=== PATIENT | male | born 1995 | race Caucasian/White ===

== ENCOUNTER 2020-03-24 08:47 | Inpatient (IN) | payer OTHER ==
--- NOTE | 2020-03-24 09:38 | BHS.RME ---
Substance Use & Tx History - Substance Use History Alcohol Substance amount: 1 liter rum Frequency of use: Daily Substance route: Oral Date of Last Use: 03/23/20 Marijuana/Hashish Substance amount: 2 grams Frequency of use: Less than 3 times per week Substance route: Smoking Date of Last Use: 03/20/20 Nicotine Substance amount: 1n pack Frequency of use: Less than 3 times per week Substance route: Smoking Date of Last Use: 03/17/20 Physical/Psych/Mental Status - Behavior General Behavior: Increased activity (restlessness, agitation) Eye Contact: Normal - Cooperativeness Cooperativeness: Cooperative - Thinking Thought Processes: Tight, Logical, Goal Directed Thought content: Future oriented - Physical Health Problems Is patient presently having any pain?: No Does patient presently have any injuries (include location): No Does patient currently have a fever: No Is patient : No CIWA Nausea/Vomitin Muscle Tremors: 4-Moderate,w/Arms Extend Anxiety: 6 Agitation: 4-Moderately Restless Paroxysmal Sweats: 1-Minimal Palms Moist Orientation: 1-Uncertain about Date Tacttile Disturbances: 0-None Auditory Disturbances: 0-None Visual Disturbances: 0-None Headache: 0-None Present CIWA-Ar Total Score: 18
--- NOTE | 2020-03-24 10:25 | HP ---
CIWA Score Nausea/Vomitin Muscle Tremors: 4-Moderate,w/Arms Extend Anxiety: 6 Agitation: 4-Moderately Restless Paroxysmal Sweats: 1-Minimal Palms Moist Orientation: 1-Uncertain about Date Tacttile Disturbances: 0-None Auditory Disturbances: 0-None Visual Disturbances: 0-None Headache: 0-None Present CIWA-Ar Total Score: 18 - Admission Criteria OASAS Guidelines: Admission for Medically Managed Detox: Requires at least one of the followin. CIWA greater than 12 2. Seizures within the past 24 hours 3. Delirium tremens within the past 24 hours 4. Hallucinations within the past 24 hours 5. Acute intervention needed for co occurring medical disorder 6. Acute intervention needed for co occurring psychiatric disorder 7. Severe withdrawal that cannot be handled at a lower level of care (continued vomiting, continued diarrhea, abnormal vital signs) requiring intravenous medication and/or fluids 8. Admitting History and Physical - Admission Chief Complaint: " I feel sick and mentally unstable and dont want to lose my job." History of Present Illness: 24 year old male with history of alcohol dependence with withdrawal. He was her e 2 days ago and did not stay because he wasn't reacy. Alcohol: 1 liter rum daily, started drinking at the age of 12 and last drank 03/23/20, blackouts multiple times, last one 1 month ago, endorses the need for an eye manager education daily Marijuana: 2 grams on the weekends, started at age 14 and last used 03/20/20 Nicotine: 1 pack weekly, started at age 14 and last smoked 03/17/20 PMH: HTN, GERD Psurg: None Psych: Bipolar ( Seroquel, benadryl) last taken meds 1 month ago Lives in [place] with family No legal problems. He is at high risk for relapse, employed as an RN for 2 years.CIWA=18 HUDSON: 0.000 History Source: Patient Limitations to Obtaining History: No Limitations - Past Medical History Cardiovascular: Yes: HTN Gastrointestinal: Yes: GERD Psych: Yes: Bipolar - Past Surgical History Past Surgical History: Yes: None - Smoking History Smoking history: Former smoker Have you smoked in the past 12 months: No - Alcohol/Substance Use Hx Alcohol Use: Yes History of Substance Use: reports: Marijuana - Social History Usual Living Arrangement: Yes: With Parent Do you think of yourself as: Straight/Heterosexual ADL: Independent Occupation: RN History of Recent Travel: No Admission ROS BHS - HPI Exam Limitations: No Limitations - Ebola screening Have you traveled outside of the country in the last 21 days: No Have you had contact with anyone from an Ebola affected area: No Have you been sick,other than usual withdrawal symptoms: No Do you have a fever: No - Review of Systems Constitutional: Chills, Diaphoresis EENT: reports: No Symptoms Reported Respiratory: reports: No Symptoms reported Cardiac: reports: No Symptoms Reported GI: reports: No Symptoms Reported : reports: No Symptoms Reported Musculoskeletal: reports: No Symptoms Reported Integumentary: reports: No Symptoms Reported Neuro: reports: No Symptoms reported Endocrine: reports: No Symptoms Reported Hematology: reports: No Symptoms Reported Psychiatric: reports: Judgement Intact, Mood/Affect Appropiate, Orientated x3, Agitated, Anxious Other Systems: Reviewed and Negative Patient History - Patient Medical History Hx Anemia: No Hx Asthma: No Hx Chronic Obstructive Pulmonary Disease (COPD): No Hx Cancer: No Hx Cardiac Disorders: No Hx Congestive Heart Failure: No Hx Hypertension: Yes Hx Hypercholesterolemia: No Hx Pacemaker: No HX Cerebrovascular Accident: No Hx Seizures: No Hx Dementia: No Hx Diabetes: No Hx Gastrointestinal Disorders: Yes (GERD) Hx Liver Disease: No Hx Genitourinary Disorders: No Hx Sexually Transmitted Disorders: No Hx Renal Disease (ESRD): No Hx Thyroid Disease: No Hx Human Immunodeficiency Virus (HIV): No Hx Hepatitis C: No Hx Depression: No Hx Suicide Attempt: No Hx Bipolar Disorder: Yes Hx Schizophrenia: No - Patient Surgical History Past Surgical History: No - PPD History Previous Implant?: Yes Documented Results: Negative w/o proof Implanted On Prior [facility] Admission?: No Date: 10/30/19 Results: negative PPD to be Administered?: Yes - Smoking Cessation Smoking history: Former smoker Have you smoked in the past 12 months: No Hx Chewing Tobacco Use: No Initiated information on smoking cessation: No - Substances abused Alcohol Substance route: Oral Frequency: Daily Amount used: 1 liter rum Age of first use: 12 Date of last use: 03/23/20 (10pm) Marijuana/Hashish Substance route: Smoking Frequency: Daily Amount used: 2 grams Age of first use: 14 Date of last use: 03/20/20 Admission Physical Exam S - Physical General Appearance: Yes: Moderate Distress, Thin, Tremorous, Irritable, Sweating, Anxious HEENTM: Yes: EOMI, Hearing grossly Normal, Normal ENT Inspection, Normocephalic, Normal Voice, DIMAS, Pharynx Normal, Tm's normal Respiratory: Yes: Chest Non-Tender, Lungs Clear, Normal Breath Sounds, No Respiratory Distress, No Accessory Muscle Use Neck: Yes: No masses,lesions,Nodules, Supple, Trachea in good position Breast: Yes: Within Normal Limits Cardiology: Yes: Regular Rhythm, Regular Rate, S1, S2 Abdominal: Yes: Normal Bowel Sounds, Non Tender, Flat, Soft, Protuberent Genitourinary: Yes: Within Normal Limits Back: Yes: Normal Inspection Musculoskeletal: Yes: full range of Motion, Gait Steady, Pelvis Stable Extremities: Yes: Normal Capillary Refill, Normal Inspection, Normal Range of Motion, Non-Tender Neurological: Yes: canoe inspector final II-XII NML intact, Fully Oriented, Alert, Motor Strength 5/5, Normal Mood/Affect, Normal Response Integumentary: Yes: Normal Color, Dry, Warm Lymphatic: Yes: Within Normal Limits - Diagnostic (1) Alcohol dependence with withdrawal Current Visit: Yes Status: Acute (2) Hypertension Current Visit: Yes Status: Acute (3) GERD (gastroesophageal reflux disease) Current Visit: Yes Status: Acute (4) Cannabis use disorder, mild, abuse Current Visit: Yes Status: Acute Cleared for Admission [facility] - Detox or Rehab [facility] Level of Care: Medically Managed Detox Regimen/Protocol: Librium Claeared for Rehab Admission: No Screened but not Admitted - Documentation of Visit Screened but not Admitted: No Breathalyzer - Breathalyzer Breathalyzer: 0 Urine Drug Screen - Test Device Lot number: [id number] Expiration date: 05/10/21 - Control Is test valid?: Yes - Results Drug screen NEGATIVE: No Urine drug screen results: THC-Marijuana Inpatient Rehab Admission - Rehab Decision to Admit Inpatient rehab admission?: No
[2020-03-24] MEDS ORDERED: MAG HYDROX/AL HYDROX/SIMETH 30 ML UNIT-DOSE CUP PO PRN (10:32)
[2020-03-24] MEDS ORDERED: chlordiazePOXIDE HCL 25 MG CAPSULE PO PRN (10:32)
[2020-03-24] MEDS ORDERED: ACETAMINOPHEN 325 MG TABLET (FP) PO PRN ×2 (10:32)
[2020-03-24] MEDS ORDERED: NICOTINE POLACRILEX 2 MG GUM BUC PRN (10:32)
[2020-03-24] MEDS ORDERED: MAGNESIUM CITRATE 300 ML BOTTLE PO PRN (10:32)
[2020-03-24] MEDS ORDERED: ONDANSETRON *ODT* 4 MG TABLET SL ONE (10:32)
[2020-03-24] MEDS ORDERED: IBUPROFEN 400 MG TABLET (FP) PO PRN (10:32)
[2020-03-24] MEDS ORDERED: BISMUTH SUBSALICYLATE 262 MG/15 ML BTL PO PRN (10:32)
[2020-03-24] MEDS ORDERED: MAGNESIUM HYDROX 2400MG/30ML ORAL SUSPENSION 30 ML CUP PO PRN (10:32)
[2020-03-24] MEDS ORDERED: MENTHOL/PHENOL 1 EACH UD MM PRN (10:32)
[2020-03-24] MEDS ORDERED: METHOCARBAMOL 500 MG TABLET PO PRN (10:32)
[2020-03-24 10:48] VITALS: BMI 32.3
--- NOTE | 2020-03-24 10:48 | EKG ---
Test Reason : Blood Pressure : / mmHG Vent. Rate : 085 BPM Atrial Rate : 085 BPM P-R Int : 150 ms QRS Dur : 096 ms QT Int : 360 ms P-R-T Axes : 038 026 029 degrees QTc Int : 428 ms NORMAL SINUS RHYTHM NORMAL ECG NO PREVIOUS ECGS AVAILABLE Confirmed by MD CANDIDO, TERENCE ([id number]) on 03/24/2020 10:48:15 AM Referred By: Confirmed By:TERENCE REY MD
[2020-03-24] MEDS: chlordiazePOXIDE HCL 25 MG CAPSULE PO SCH ×3 (12:14→22:25)
[2020-03-24] MEDS: NICOTINE 7 MG/24 HOURS TOPICAL PATCH TD SCH (12:15)
[2020-03-24] MEDS: PRENATAL VITAMINS W/ FOLIC ACID TABLET (FP) PO SCH (12:16)
[2020-03-24] MEDS: hydrOXYzine PAMOATE 25 MG CAPSULE (FP) PO SCH ×3 (13:35→22:25)
--- NOTE | 2020-03-24 14:02 | CONSULT ---
[facility] Psychiatric Consult - Data Date of interview: 03/24/20 Admission source: [facility] Identifying data: Mr Duong is a 24 years old single [place] male, employed as a dialysis nurse, living with his parents seeking detox treatment for alcohol and cannabis Substance Abuse History: Reports history of alcohol and marijuana use. Refer to addiction counselor's summary for further information Medical History: Significant for hypertension and GERD. Smokes few cigarettes daily Psychiatric History: This is patient's first admission to this facility. He reports that his first psychiatric contact occured in 2018 when he was diagnosed with Bipolar Disorder by a psychiatrist at [facility] in [facility] and started on Lexapro. Reports receiving outpatient psychiatric at same facility till November 2019. However he was switched to Seroquel which he stopped taking in December 2019. Denies previous psychiatric hospitalization or suicidal attempt. At present, denies experiencing psychotic, manic or depressive symptoms, S/H ideations. However, reports sleeping poorly Physical/Sexual Abuse/Trauma History: Denies history of abuse as a child or DV relationship as an adult Mental Status Exam - Mental Status Exam Alert and Oriented to: Time, Place, Person Cognitive Function: Fair Patient Appearance: Well Groomed Mood: Hopeful, Euthymic Patient Behavior: Cooperative Speech Pattern: Clear Voice Loudness: Normal Thought Process: Intact, Goal Oriented Hallucinations: Denies Suicidal Ideation: Denies Homicidal Ideation: Denies Insight/Judgement: Poor Sleep: Poorly Appetite: Fair Muscle strength/Tone: Normal Gait/Station: Normal Psychiatric Findings - Problem List ([place] 1, 2,3) (1) Bipolar II disorder Current Visit: Yes Status: Chronic (2) Substance-induced sleep disorder Current Visit: Yes Status: Acute (3) Alcohol dependence with withdrawal Current Visit: Yes Status: Acute (4) Cannabis use disorder, mild, abuse Current Visit: Yes Status: Acute (5) Nicotine dependence Current Visit: Yes Status: Chronic (6) GERD (gastroesophageal reflux disease) Current Visit: Yes Status: Chronic (7) Hypertension Current Visit: Yes Status: Chronic - Initial Treatment Plan Initial Treatment Plan: 1) Start Melatonin 5 mg po HS prn for insomnia. 2) Continue inpatient detoxification
[2020-03-24] MEDS ORDERED: TUBERCULIN PPD 5 TU/0.1ML VIAL ID ONE (14:29)
[2020-03-24 16:26] LABS: HEMATOCRIT 47.6 % (35.4-49); HEMOGLOBIN 16.6 GM/dL (11.7-16.9); MCH 33.6 pg (25.7-33.7); MCHC 34.9 g/dl (32.0-35.9); MEAN CELL VOLUME 96.3 fl (80-96); MEAN PLT VOLUME 7.7 fl (7.5-11.1); PLATELET COUNT 310 K/MM3 (134-434); RBC 4.94 M/mm3 (4.00-5.60); RDW 12.9 % (11.9-15.9)
[2020-03-24 16:34] LABS: ALBUMIN 4.4 g/dl (3.4-5.0); BILIRUBIN,TOTAL 2.3 mg/dL (0.2-1); BLOOD UREA NITROGEN 10.1 mg/dL (7-18); CALCIUM 9.4 mg/dL (8.5-10.1); CREATININE 0.9 mg/dL (0.55-1.3); POTASSIUM 3.7 mmol/L (3.5-5.1); TOT PROT 8.2 g/dl (6.4-8.2)
[2020-03-24] MEDS: MELATONIN 5 MG TABLETS PO SCH (22:25)
[2020-03-24] MEDS: THIAMINE HCL 100 MG TABLET (FP) PO SCH (22:25)
[2020-03-25] MEDS: chlordiazePOXIDE HCL 25 MG CAPSULE PO SCH ×4 (06:18→22:12)
[2020-03-25] MEDS: hydrOXYzine PAMOATE 25 MG CAPSULE (FP) PO SCH ×5 (06:19→22:11)
[2020-03-25] MEDS: NICOTINE 7 MG/24 HOURS TOPICAL PATCH TD SCH (10:15)
[2020-03-25] MEDS: PANTOPRAZOLE 40 MG TABLET PO SCH (10:15)
[2020-03-25] MEDS: PRENATAL VITAMINS W/ FOLIC ACID TABLET (FP) PO SCH (10:15)
--- NOTE | 2020-03-25 11:59 | PN ---
S CIWA - CIWA Score Nausea/Vomitin-No Nausea/No Vomiting Muscle Tremors: 4-Moderate,w/Arms Extend Anxiety: 4-Mod. Anxious/Guarded Agitation: 3 Paroxysmal Sweats: 1-Minimal Palms Moist Orientation: 0-Oriented Tacttile Disturbances: 0-None Auditory Disturbances: 0-None Visual Disturbances: 0-None Headache: 0-None Present CIWA-Ar Total Score: 12 BHS Progress Note (SOAP) Subjective: Pt is a 24 y/o male admitted to detox [address] [place] [address] from [facility] with alcohol withdrawal sx. Pt c/o Slight Anxiety Tremors chills Objective: 03/25/20 11:55 Vital Signs - 24 hr 03/24/20 03/24/20 03/24/20 12:11 12:46 16:38 Temperature 97.8 F 97.8 F 98.2 F Pulse Rate 99 H 95 H 95 H Respiratory 18 18 18 Rate Blood Pressure 141/108 H 153/92 144/96 O2 Sat by Pulse 97 97 Oximetry (%) Laboratory Tests 03/24/20 03/24/20 03/24/20 11:00 11:00 11:00 WBC 5.0 RBC 4.94 Hgb 16.6 Hct 47.6 MCV 96.3 H MCH 33.6 MCHC 34.9 RDW 12.9 Plt Count 310 MPV 7.7 Sodium 136 Potassium 3.7 Chloride 100 Carbon Dioxide 26 Anion Gap 10 BUN 10.1 Creatinine 0.9 Est GFR (CKD-EPI)AfAm 136.14 Est GFR (CKD-EPI)NonAf 117.46 Random Glucose 101 Calcium 9.4 Total Bilirubin 2.3 H AST 246 H ALT 121 H Alkaline Phosphatase 93 Total Protein 8.2 Albumin 4.4 Syphilis Serology Non-reactive COVID-19 (ABIEL) 03/24/20 11:30 WBC RBC Hgb Hct MCV MCH MCHC RDW Plt Count MPV Sodium Potassium Chloride Carbon Dioxide Anion Gap BUN Creatinine Est GFR (CKD-EPI)AfAm Est GFR (CKD-EPI)NonAf Random Glucose Calcium Total Bilirubin AST ALT Alkaline Phosphatase Total Protein Albumin Syphilis Serology COVID-19 (ABIEL) Not detected Elevated liver enzymes Assessment: 03/25/20 11:57 withdrawal sx Plan: cont detox increase po fluids maintain safety
[2020-03-25] MEDS: THIAMINE HCL 100 MG TABLET (FP) PO SCH (22:11)
[2020-03-25] MEDS: MELATONIN 5 MG TABLETS PO SCH (22:11)
[2020-03-26] MEDS: chlordiazePOXIDE HCL 25 MG CAPSULE PO SCH ×2 (05:50→11:03)
[2020-03-26] MEDS: hydrOXYzine PAMOATE 25 MG CAPSULE (FP) PO SCH ×6 (05:50→22:47)
[2020-03-26 09:52] LABS: INR 0.91 (0.83-1.09); PROTHROMBIN TIME (PATIENT) 10.7 SEC (9.7-13.0)
[2020-03-26] MEDS: PANTOPRAZOLE 40 MG TABLET PO SCH (11:02)
[2020-03-26] MEDS: NICOTINE 7 MG/24 HOURS TOPICAL PATCH TD SCH (11:02)
[2020-03-26] MEDS: PRENATAL VITAMINS W/ FOLIC ACID TABLET (FP) PO SCH (11:02)
--- NOTE | 2020-03-26 11:53 | PN ---
S CIWA - CIWA Score Nausea/Vomitin-No Nausea/No Vomiting Muscle Tremors: None Anxiety: 4-Mod. Anxious/Guarded ("want to go back to work") Agitation: 0-Normal Activity Paroxysmal Sweats: No Perspiration Orientation: 0-Oriented Tacttile Disturbances: 0-None Auditory Disturbances: 0-None Visual Disturbances: 0-None Headache: 0-None Present CIWA-Ar Total Score: 4 BHS Progress Note (SOAP) Subjective: Pt reports detox proceeding well , slight Anxiety. States would like to go back to work and feeling better. "States i just had a little too much to drink so my parents encouraged me to come. Objective: 03/26/20 12:31 Vital Signs - 24 hr 03/25/20 03/25/20 03/26/20 16:42 20:45 05:45 Temperature 97.8 F 97.3 F L 97.3 F L Pulse Rate 90 84 61 Respiratory 18 19 19 Rate Blood Pressure 126/99 131/83 110/64 O2 Sat by Pulse 98 98 Oximetry (%) 03/26/20 09:21 Temperature 97.7 F Pulse Rate 88 Respiratory 18 Rate Blood Pressure 141/95 O2 Sat by Pulse 98 Oximetry (%) Laboratory Tests 03/24/20 03/24/20 03/24/20 11:00 11:00 11:00 WBC 5.0 RBC 4.94 Hgb 16.6 Hct 47.6 MCV 96.3 H MCH 33.6 MCHC 34.9 RDW 12.9 Plt Count 310 MPV 7.7 PT with INR INR Sodium 136 Potassium 3.7 Chloride 100 Carbon Dioxide 26 Anion Gap 10 BUN 10.1 Creatinine 0.9 Est GFR (CKD-EPI)AfAm 136.14 Est GFR (CKD-EPI)NonAf 117.46 Random Glucose 101 Calcium 9.4 Total Bilirubin 2.3 H AST 246 H ALT 121 H Alkaline Phosphatase 93 Total Protein 8.2 Albumin 4.4 Syphilis Serology Non-reactive COVID-19 (ABIEL) 03/24/20 03/26/20 11:30 07:20 WBC RBC Hgb Hct MCV MCH MCHC RDW Plt Count MPV PT with INR 10.70 INR 0.91 Sodium Potassium Chloride Carbon Dioxide Anion Gap BUN Creatinine Est GFR (CKD-EPI)AfAm Est GFR (CKD-EPI)NonAf Random Glucose Calcium Total Bilirubin AST ALT Alkaline Phosphatase Total Protein Albumin Syphilis Serology COVID-19 (ABIEL) Not detected Alert o x 3 nad oob ambulating with steady gait Assessment: 03/26/20 12:31 mild withdrawal sx medically stable Plan: cont detox increase po fluids maintain safety Pt may be discharged in the morning 03/27/20 if medically stable. Pt has PCP at [facility]-Dr Cooper. Pt to follow up with PCP for medical management and repeat blood work for elevated liver enzymes.
[2020-03-26 15:11] LABS: ALK PHOS 115 U/L (45-117); SGOT/AST 139 U/L (15-37); SGPT/ALT 98 U/L (13-61)
[2020-03-26] MEDS ORDERED: chlordiazePOXIDE HCL 10 MG CAPSULE PO ONE ×3 (17:07→23:00)
[2020-03-26] MEDS: chlordiazePOXIDE HCL 10 MG CAPSULE PO SCH ×2 (17:22→17:23)
[2020-03-26] MEDS: MELATONIN 5 MG TABLETS PO SCH (22:47)
[2020-03-26] MEDS: THIAMINE HCL 100 MG TABLET (FP) PO SCH (22:47)
[2020-03-27] MEDS ORDERED: chlordiazePOXIDE HCL 10 MG CAPSULE PO PRN
[2020-03-27] MEDS ORDERED: chlordiazePOXIDE HCL 10 MG CAPSULE PO SCH (05:00)
[2020-03-27] MEDS ORDERED: chlordiazePOXIDE HCL 10 MG CAPSULE PO ONE (05:00)
[2020-03-27] MEDS: hydrOXYzine PAMOATE 25 MG CAPSULE (FP) PO SCH (06:22)
[2020-03-27 10:13] VITALS: BP 145/96; PULSE 72; TEMP 97.3
--- NOTE | 2020-03-27 10:57 | DS ---
[facility] Detox Discharge Summary Admission Date: 03/24/20 Discharge Date: 03/27/20 - History Present History: Alcohol Dependence Additional Comments: Alert and oriented x 3, in no acute respiratory distress. Full ROM, ambulating in the unit without assistance. Completed detox protocol, medical stable for discharge today. Pertinent Past History: History of HTN, GERD and Bipolar. - Physical Exam Results Vital Signs: Vital Signs Temperature 97.3 F L 03/27/20 08:30 Pulse Rate 72 03/27/20 08:30 Respiratory Rate 18 03/27/20 08:30 Blood Pressure 145/96 03/27/20 08:30 O2 Sat by Pulse Oximetry (%) 98 03/27/20 08:30 - Treatment Hospital Course: Detox Protocol Followed, Detoxed Safely, Responded well, Discharged Condition Good - Medication Discharge Medications: Ambulatory Orders Hydroxyzine HCl 25 mg PO PRN PRN 03/24/20 Pantoprazole Sodium [Protonix -] 40 mg PO DAILY #30 tab 03/26/20 - Diagnosis (1) Alcohol dependence with withdrawal Current Visit: Yes Status: Acute (2) Cannabis use disorder, mild, abuse Current Visit: Yes Status: Chronic (3) GERD (gastroesophageal reflux disease) Current Visit: Yes Status: Chronic (4) Hypertension Current Visit: Yes Status: Chronic (5) Nicotine dependence Current Visit: Yes Status: Chronic - AMA Did Patient Leave Against Medical Advice: No
[2020-03-28] MEDS ORDERED: chlordiazePOXIDE HCL 10 MG CAPSULE PO SCH (05:00)
[2020-03-29] MEDS ORDERED: chlordiazePOXIDE HCL 10 MG CAPSULE PO ONE (05:00)
== END 2020-03-27 09:55 | disposition home or self-care (01) | DRG 775 ==
LOC: YASAS 08:47 → Y5N DETOX 10:44
PROVIDERS: ADMIT Allergy & Immunology; ATTEND Allergy & Immunology
PROC: HZ2ZZZZ Detoxification Services for Substance Abuse Treatment (ICD-10-PCS; principal; 2020-03-24)
DX: F10.230 Alcohol dependence with withdrawal, uncomplicated (principal); F12.10 Cannabis abuse, uncomplicated; F17.210 Nicotine dependence, cigarettes, uncomplicated; F19.282 Other psychoactive substance dependence with psychoactive substance-induced sleep disorder; F31.81 Bipolar II disorder; I10 Essential (primary) hypertension; K21.9 Gastro-esophageal reflux disease without esophagitis; R74.0 Nonspecific elevation of levels of transaminase and lactic acid dehydrogenase [LDH]
CPT/HCPCS: 36415; 80053; 84075; 84450; 84460; 85027; 85610; 86780; 93005; 93010; Q0162; U0003